=== PATIENT | male | born 1960 | race Caucasian/White ===

== ENCOUNTER 2018-03-15 06:53 | Emergency (ER) | payer OTHER ==
[~2018-03-15] VITALS: Ht 170.2 cm; Wt 80.7 kg
[2018-03-15] MEDS ORDERED: ASPIRIN325 PO (07:01)
[2018-03-15 07:42] LABS: HEMOGLOBIN 15.4 gm/dL (14.0-18.0); MCH 28.5 pg (26.0-34.0); MCHC 34.2 g/dL (28.0-37.0); MCV 83.3 fL (80.0-100.0); MPV 7.7 fl. (7.2-11.1); NUCLEATED RBCS 0 /100WBC; PLATELET COUNT* 206 thou/uL (150-400); WBC 5.2 thou/uL (4.0-11.0)
[2018-03-15 07:50] LABS: ANION GAP 8 mmol/L (7-16); BUN 32 mg/dL (7-18); CALCIUM 9.1 mg/dL (8.5-10.1); CHLORIDE 105 mmol/L (98-107); CO2 28 mmol/L (21-32); CREATININE 1.1 mg/dL (0.6-1.3); GLUCOSE 107 mg/dL (70-99); SODIUM 141 mmol/L (136-145)
[2018-03-15 07:56] LABS: ALBUMIN 3.8 g/dL (3.4-5.0); ALKALINE PHOSPHATASE 52 U/L (46-116); SGOT 22 U/L (15-37); SGPT 46 U/L (30-65); TOTAL BILIRUBIN 0.4 mg/dL (<0.1-1.0); TOTAL PROTEIN 6.9 g/dL (6.4-8.2); TROPONIN-I LEVEL <0.06 ng/mL (<0.06)
[2018-03-15] MEDS ORDERED: VENTOLIN HFA 1818 GM INH (08:01)
[2018-03-15] MEDS ORDERED: PREDNISONE50 MG PO (08:01)
[2018-03-15 08:08] VITALS: BP 111/79
[2018-03-15 08:26] LABS: ABSOLUTE EOSINOPHILS 0.5 thou/uL (0.0-0.7); ABSOLUTE LYMPHOCYTES 2.1 thou/uL (0.8-5.3); ABSOLUTE MONOCYTES 0.5 thou/uL (0.0-1.2); ABSOLUTE NEUTROPHILS 2.1 thou/uL (1.6-8.1); ANISOCYTOSIS 1+; PLATELET ESTIMATE ADEQUATE; POIKILOCYTOSIS 1+
--- NOTE | 2018-03-15 13:48 | EKG ---
[place] [address] ELECTROCARDIOGRAM REPORT Name: ISIAH CHRIS [id number] Admission: 03/15/18 Attend Phys: Discharge: 03/15/18 Date of : 62 Report #: [id number] THIS REPORT FOR: //name// [facility] ED Test Date: 2018-03-15 Test Time: 06:58:55 Pat Name: ISIAH CHRIS Department: Room: Gender: M Criminal Justice Instructor: REGINA : 1960 Requested By: Tom Jacobo Order Number: [id number] MD: Boni Barron Measurements Intervals [place] Rate: 83 P: 69 [place]: 171 QRS: 27 QRSD: 66 T: 55 QT: 357 QTc: 420 Interpretive Statements Sinus rhythm Abnormal R-wave progression, early transition Baseline wander in lead(s) V2 No previous ECG available for comparison Electronically Signed On 03-15-2018 13:48:29 SOFTWARE SUPPORT REPRESENTATIVE by Boni Barron [email or web address] <ELECTRONICALLY SIGNED> By: Boni Barron MD, [facility] 03/15/18 [id number] Boni Barron MD, FACC /EPI
== END 2018-03-15 08:09 | disposition home or self-care (01) ==
LOC: M.ERS 06:53
PROVIDERS: Emergency Medicine Emergency Medical Services
DX: J40 Bronchitis, not specified as acute or chronic (principal)